=== PATIENT | female | born 1950 | race Two or more races ===

== ENCOUNTER 2017-07-26 01:56 | Inpatient (IN) | payer SELFPAY ==
[2017-07-26 02:36] LABS: ADD MAN DIFF? NO
[2017-07-26 02:39] LABS: BASO # 0.1 x10^3/uL (0.0-0.2); BASO % 1 % (0-3); EOS # 0.3 x10^3/uL (0.0-0.7); EOS % 4 % (0-3); HEMATOCRIT 34.5 % (36.0-47.0); HEMOGLOBIN 12.1 g/dL (12.0-15.5); LYMPH # 2.6 x10^3/uL (1.0-4.8); LYMPH % 35 % (24-48); MEAN CORPUSCULAR HEMOGLOBIN 32 pg (25-35); MEAN CORPUSCULAR HGB CONC 35 g/dL (31-37); MEAN CORPUSCULAR VOLUME 90 fL (79-100); MONO # 0.5 x10^3/uL (0.0-1.1); MONO % 7 % (0-9); NEUT # 4.1 x10^3uL (1.8-7.7); NEUT % 54 % (31-73); PLATELET COUNT 243 x10^3/uL (140-400); RED BLOOD COUNT 3.83 x10^6/uL (3.50-5.40); WHITE BLOOD COUNT 7.6 x10^3/uL (4.0-11.0)
[2017-07-26] MEDS ORDERED: ONDANSETRON PF 4 MG/2 ML VIAL. IV (02:45)
[2017-07-26] MEDS ORDERED: fentaNYL PF VIAL 100 MCG/2 ML VIAL IV (02:45)
[2017-07-26 02:48] LABS: INR 1.1 (0.8-1.1); PARTIAL THROMBOPLASTIN TIME 26 SEC (24-38); PROTHROMBIN TIME PATIENT 13.5 SEC (11.7-14.0)
[2017-07-26 02:56] LABS: ANION GAP 12 (6-14); BLOOD UREA NITROGEN 31 mg/dL (7-20); BUN/CREATININE RATIO 24 (6-20); CALCIUM 9.6 mg/dL (8.5-10.1); CARBON DIOXIDE 26 mmol/L (21-32); CHLORIDE 102 mmol/L (98-107); CREATININE 1.3 mg/dL (0.6-1.0); GFR 40.9; GLUCOSE 255 mg/dL (70-99); POTASSIUM 3.6 mmol/L (3.5-5.1); SODIUM 140 mmol/L (136-145)
[2017-07-26] MEDS: ASPIRIN ENTERIC COATED 325 MG TABLET.DR. PO (02:57)
[2017-07-26] MEDS: NITROGLYCERIN SUBLINGUAL 0.4 MG BOTTLE OF 25. SL (02:57)
[2017-07-26 03:02] LABS: ALBUMIN 3.6 g/dL (3.4-5.0); ALBUMIN/GLOBULIN RATIO 0.9 (1.0-1.7); ALK PHOS 118 U/L (46-116); ALT (SGPT) 20 U/L (14-59); AST (SGOT) 15 U/L (15-37); LIPASE 330 U/L (73-393); MAGNESIUM 1.7 mg/dL (1.8-2.4); TOTAL BILIRUBIN 0.2 mg/dL (0.2-1.0); TOTAL PROTEIN 7.7 g/dL (6.4-8.2)
[2017-07-26 03:06] LABS: NT-PRO BNP 85 pg/mL (0-124)
[2017-07-26 03:07] LABS: TROPONINI < 0.017 ng/mL (0.000-0.055)
[2017-07-26] MEDS: IV NORMAL SALINE 1000ML BAG 1,000 ML IV (04:22)
[2017-07-26 06:27] LABS: TROPONINI < 0.017 ng/mL (0.000-0.055)
[2017-07-26 07:36] LABS: POC GLUCOSE 132 mg/dL (70-99)
[2017-07-26] MEDS ORDERED: PNEUMOCOCCAL VAX SCREEN BY RX. MC (09:00)
[2017-07-26] MEDS ORDERED: INFLUENZA VAX SCREEN BY RX. MC (09:00)
[2017-07-26 09:47] LABS: TROPONINI < 0.017 ng/mL (0.000-0.055)
[2017-07-26] MEDS: FLU VACC QS2017-18 (36MOS+)/PF 0.5 ML SYRINGE. VAX IM (10:27)
[2017-07-26] MEDS: PNEUMOC CONJ VACC 23-VALENT 0.5 ML VIAL. VAX IM (10:29)
[2017-07-26 11:26] LABS: POC GLUCOSE 151 mg/dL (70-99)
[2017-07-26 12:01] LABS: CHOLESTEROL 172 mg/dL (0-200); HDLC 36 mg/dL (40-60); LDLC 105 mg/dL (0-100); NON-HDL CHOLESTEROL 136 mg/dL (0-129); TRIGLYCERIDES 157 mg/dL (0-150); VLDLC 31 mg/dL (0-40)
[2017-07-26 12:02] LABS: CHOLESTEROL/HDL RATIO 4.8
[2017-07-26] MEDS: MAGNESIUM SULFATE 2GM 50 ML IV (12:07)
[2017-07-27] MEDS ORDERED: ASPIRIN ENTERIC COATED 81 MG TABLET.DR. PO (08:00)
== END 2017-07-26 15:30 | disposition home or self-care (01) | DRG 313 ==
LOC: ER 01:56 → 5 SOUTH 02:34
DX: R07.89 Other chest pain (principal); E11.22 Type 2 diabetes mellitus with diabetic chronic kidney disease; N18.3 Chronic kidney disease, stage 3 (moderate); E78.00 Pure hypercholesterolemia, unspecified; M19.90 Unspecified osteoarthritis, unspecified site; E78.5 Hyperlipidemia, unspecified; I12.9 Hypertensive chronic kidney disease with stage 1 through stage 4 chronic kidney disease, or unspecified chronic kidney disease; Z83.3 Family history of diabetes mellitus
CPT/HCPCS: 36415; 71045; 80053; 80061; 82962; 83690; 83735; 83880; 84484; 85025; 85610; 85730; 90686; 90732; 93005; 99285-25; J7030; J7060